=== PATIENT | female | born 1980 | race Caucasian/White ===

== ENCOUNTER 2016-08-26 12:06 | Emergency (ER) | payer BC, OTHER ==
[~2016-08-26] VITALS: Ht 165.1 cm; Wt 69.6 kg
[~2016-08-26 12:06] MED LIST: PRENTAB26 PO
[2016-08-26 12:14] VITALS: TEMP 37; Ht 165.1 cm; Wt 69.6 kg
[2016-08-26] MEDS ORDERED: ACETAMINOPHEN 500 MG TAB PO STA (13:09)
--- NOTE | 2016-08-26 13:36 | EMERGENCY ROOM VISIT NOTE ---
History Report prepared by Benji: Mary Puga Under the Supervision of: Dr. Travis Mahoney M.D. First contact with patient: 12:55 Chief Complaint: SHOULDER PAIN Stated Complaint: RIGHT SHOULDER PAIN History of Present Illness The patient is a 36 year old female who presents to the Emergency Room with complaints of persistent right shoulder pain starting at 1100 this morning. She fell off of a horse when it slipped in the rain. She landed on her right shoulder. She can extend her elbow, but she does not move her shoulder. Her humerus feels ok. She denies any chest pain, SOB, vaginal bleeding. She is 5 months . This is her second . There were no problems with her first. Source of History: patient Onset: 1100 today Position: shoulder (right) Quality: other (pain) Timing: other (persistent) Modifying Factors (Worsening): movement Associated Symptoms: No SOB, No chest pain Note: Pt denies vaginal bleeding. Review of Systems See HPI for pertinent positives & negatives. A total of 10 systems reviewed and were otherwise negative. Past Medical & Surgical Medical Problems: (1) Humerus fracture (2) Humerus fracture Family History Cancer Diabetes mellitus Hypertension Social History Smoking Status: Never Smoker Alcohol Use: none Housing Status: lives with family Current/Historical Medications Scheduled PRN Oxycodone Immediate Rel Tab (Roxicodone Ir), 1 TAB PO QID PRN for Pain Allergies Coded Allergies: No Known Allergies (Unverified , 08/26/16) Physical Exam Vital Signs Date Time Temp Pulse Resp B/P Pulse Ox O2 Delivery O2 Flow Rate FiO2 08/26/16 17:49 76 18 126/64 97 08/26/16 15:48 72 18 132/74 98 Room Air 08/26/16 13:58 70 08/26/16 13:51 72 18 127/80 98 Room Air 08/26/16 12:14 37.0 69 16 130/91 99 Room Air Physical Exam GENERAL: Patient is a healthy-appearing well-nourished HEAD: Normocephalic atraumatic EYES: Ocular movements intact pupils equal and react to light OROPHARYNX mucous membranes are moist no exudates present no erythema or edema present NECK: Supple no nuchal rigidity CHEST: Good equal expansion. Obvious deformity to the mid clavicle area. LUNGS: Clear and equal to auscultation CARDIAC: Normal S1 and S2 ABDOMEN: Gravid abdomen. BACK: No CVA tenderness EXTREMITIES: No pain upon palpation normal muscle strength in all groups no clubbing cyanosis or edema NEURO: Patient is following commands is answering questions appropriately. Alert and oriented x3 Cranial Nerves 2-12 grossly intact Medical Decision & Procedures ER Provider Diagnostic Interpretation: X-ray results as stated below per interpretation by me and the radiologist. Radiology results as stated below per my review and radiologist interpretation: ADDENDUM Additional submitted films demonstrate a fracture of the midshaft right clavicle. Electronically signed by: Willis Bassett M.D. 08/26/2016 2:31 PM Dictated Date/Time: 08/26/2016 2:31 PM ORIGINAL REPORT RIGHT SHOULDER MIN 2 VIEWS ROUTINE CLINICAL HISTORY: Pt c/o rt shoulder pain; Lio; shield abd Right pain COMPARISON: None. DISCUSSION: The bones and joint spaces appear intact. There is no evidence of fracture, dislocation or bony disease. Findings consistent with old fracture of the humeral neck. IMPRESSION: No acute bony abnormality. Electronically signed by: Willis Bassett M.D. 08/26/2016 2:07 PM Dictated Date/Time: 08/26/2016 2:07 PM Limited ultrasound LIMITED (US) CLINICAL HISTORY: Pt thrown from horse 22 weeks trauma TECHNIQUE: Ultrasound COMPARISON STUDY: None FINDINGS: Single, viable intrauterine . Estimated gestational age 19 weeks 4 days. Posterior placenta. No evidence for placenta previa or bronchial placenta. Heart heart rate is confirmed at 1 45 bpm the ovaries appear unremarkable. There is no free fluid. IMPRESSION: Single, viable intrauterine of approximately 19 weeks 4 days gestational age. No abnormalities appreciated. Electronically signed by: Willis Bassett M.D. 08/26/2016 4:42 PM Dictated Date/Time: 08/26/2016 4:40 PM Laboratory Results 08/26/16 13:40 Red Blood Count 4.35, Mean Corpuscular Volume 90.8, Mean Corpuscular Hemoglobin 29.9, Mean Corpuscular Hemoglobin Concent 32.9, Mean Platelet Volume 10.8, Neutrophils (%) (Auto) 78.6, Lymphocytes (%) (Auto) 18.1, Monocytes (%) (Auto) 2.7, Eosinophils (%) (Auto) 0.2, Basophils (%) (Auto) 0.2, Neutrophils # (Auto) 6.59, Lymphocytes # (Auto) 1.52, Monocytes # (Auto) 0.23, Eosinophils # (Auto) 0.02, Basophils # (Auto) 0.02 08/26/16 13:40 Test 08/26/16 13:10 08/26/16 13:40 08/26/16 13:45 Prothrombin Time 9.5 SECONDS (9.0-12.0) Prothromb Time International Ratio 0.9 (0.9-1.1) Activated Partial Thromboplast Time 25.3 SECONDS (21.0-31.0) Partial Thromboplastin Ratio 1.0 Fibrinogen 298 mg/dl (184-400) White Blood Count 8.40 K/uL (4.8-10.8) Red Blood Count 4.35 M/uL (4.2-5.4) Hemoglobin 13.0 g/dL (12.0-16.0) Hematocrit 39.5 % (37-47) Mean Corpuscular Volume 90.8 fL (80-100) Mean Corpuscular Hemoglobin 29.9 pg (25-34) Mean Corpuscular Hemoglobin Concent 32.9 g/dl (32-36) Platelet Count 246 K/uL (130-400) Mean Platelet Volume 10.8 fL (7.4-10.4) Neutrophils (%) (Auto) 78.6 % Lymphocytes (%) (Auto) 18.1 % Monocytes (%) (Auto) 2.7 % Eosinophils (%) (Auto) 0.2 % Basophils (%) (Auto) 0.2 % Neutrophils # (Auto) 6.59 K/uL (1.4-6.5) Lymphocytes # (Auto) 1.52 K/uL (1.2-3.4) Monocytes # (Auto) 0.23 K/uL (0.11-0.59) Eosinophils # (Auto) 0.02 K/uL (0-0.5) Basophils # (Auto) 0.02 K/uL (0-0.2) RDW Standard Deviation 44.6 fL (36.4-46.3) RDW Coefficient of Variation 13.5 % (11.5-14.5) Immature Granulocyte % (Auto) 0.2 % Immature Granulocyte # (Auto) 0.02 K/uL (0.00-0.02) Anion Gap 7.0 mmol/L (3-11) Est Creatinine Clear Calc Drug Dose 138.5 ml/min Estimated GFR () 139.9 Estimated GFR (Non- 120.7 BUN/Creatinine Ratio 18.9 (10-20) Calcium Level 9.1 mg/dl (8.5-10.1) Total Bilirubin 0.2 mg/dl (0.2-1) Direct Bilirubin < 0.1 mg/dl (0-0.2) Aspartate Amino Transf (AST/SGOT) 16 U/L (15-37) Alanine Aminotransferase (ALT/SGPT) 24 U/L (12-78) Alkaline Phosphatase 41 U/L (45-117) Total Protein 7.5 gm/dl (6.4-8.2) Albumin 3.6 gm/dl (3.4-5.0) Lipase 189 U/L (73-393) Urine Color YELLOW Urine Appearance CLEAR (CLEAR) Urine pH 6.0 (4.5-7.5) Urine Specific [place] 1.012 (1.000-1.030) Urine Protein NEG (NEG) Urine Glucose (UA) NEG (NEG) Urine Ketones NEG (NEG) Urine Occult Blood NEG (NEG) Urine Nitrite NEG (NEG) Urine Bilirubin NEG (NEG) Urine Urobilinogen NEG (NEG) Urine Leukocyte Esterase NEG (NEG) Labs reviewed by ED physician. Medications Administered Medications (Trade) Dose Ordered Sig/Rena Route Start Time Stop Time Status Last Admin Dose Admin Acetaminophen (Tylenol Tab) 1,000 mg NOW STAT PO 08/26/16 13:09 08/26/16 13:12 DC 08/26/16 13:09 1,000 MG Oxycodone HCl (Roxicodone Immediate Rel 5MG Home Pack) 1 homepack UD ONCE PO 08/26/16 17:15 08/26/16 17:16 DC 08/26/16 17:39 1 HOMEPACK ED Course 1256: Past medical records reviewed. The patient was evaluated in room C9. A complete history and physical examination was performed. 1309: Acetaminophen 1000 mg PO. 1421: I reevaluated the patient. She is resting comfortably. I updated her on the results. She will be getting an ultrasound. 1432: I discussed the patient's case with [employer] Rep[employer] Supervisor. She will follow up with the patient. 1642: Upon reexamination the patient is resting comfortably. I discussed results and treatment plan with the patient. She verbalizes agreement and understanding. The patient is ready for discharge. 1659: I discussed the patient's case with [employer] Rep[employer] Supervisor. She says the patient should return if any cramping or vaginal bleeding occur. Medical Decision Prior records reviewed and summarized above. Triage Nursing notes reviewed. The patient's history was concerning for right shoulder pain. Differential diagnosis: Etiologies such as fracture, dislocation, neurovascular compromise, compartment syndrome, soft tissue injury, as well as others were entertained. This is a 36-year-old female who presents emergency department complaining of right shoulder pain. The patient appears to have good use of the right shoulder and it appears to be intact with good movement however I do suspect that she broke clavicle. The patient was originally sent for x-rays, only a right shoulder was performed. This was read as no acute process and conveyed to the patient however on reexamination I again was concerned the clavicle was fractured and I asked the x-ray tech to reshoot pictures. This revealed a fractured clavicle. I initially tried to place the patient in a sling however this was unsuccessful in getting the patient's pain under control. She was then placed in a figure 8 sling. The patient did receive Tylenol in the emergency department however refused further pain medication because of concern for the baby. A fast was also immediately performed in the emergency department which did not show any evidence of free fluid. Patient has normal CBC and her blood type is positive. I did discuss the case with gynecology who asked that the patient be sent for an ultrasound. The patient was observed for 6 hours in the emergency department. During that time serial abdominal examinations were performed on the patient in the emergency department at no time did she exhibit vaginal bleeding or surgical abdomen. I recommended the patient stop riding horses during her . She is going to follow-up with RN PLACEMENT. Patient and were in agreement with the treatment plan to follow-up with Dr. Newton from orthopedics. Consults Time Called: 1426 Consulting Physician: Wendy [employer] Repair Supervisor Returned Call: 1432 I discussed the patient's case with her. She will follow up with the patient. Additional Consults: Time Called: 1656 Consulted Physician: Wendy [address] [employer] Repair Supervisor Returned Call: [phone] Additional Comments: I discussed the patient's case with her. She says the patient should return if any cramping or vaginal bleeding occur. Impression Primary Impression: Fall Additional Impressions: Single in second trimester Clavicle fracture Scribe Attestation The scribe's documentation has been prepared under my direction and personally reviewed by me in its entirety. I confirm that the note above accurately reflects all work, treatment, procedures, and medical decision making performed by me. Departure Information Dispostion Home / Self-Care Prescriptions Oxycodone Immediate Rel Tab (ROXICODONE IR) 5 Mg Tab 1 TAB PO QID Y for Pain, #14 TAB Prov: Travis Mahoney MD 08/26/16 Referrals No Doctor, Assigned (PCP) Canan. Szymanski MD Suhey, Paul V.,D.O. Forms HOME CARE DOCUMENTATION FORM, IMPORTANT VISIT INFORMATION Patient Instructions ED Fx Clavicle, ED Sling, [facility] Additional Instructions Follow up with Dr Arshad's office Need follow up with DR Newton's office Return if severe cramping or vag bleeding occur You received narcotic or benzodiazepene medication while in the emergency room today. Do not drive, operate heavy machinery, or drink alcohol under the influence of this medication. Take 1000 mg Tylenol every 6 hours Take oxy ir for breakthrough pain You have been examined and treated today on an emergency basis only. This is not a substitute for, or an effort to provide, complete comprehensive medical care. It is impossible to recognize and treat all injuries or illnesses in a single emergency department visit. It is therefore important that you follow up closely with Dr Arshad. Call as soon as possible for an appointment. Thank you for your time and consideration. I look forward to speaking with you again soon. Please don't hesitate to call us if you have any questions. Problem Qualifiers Primary Impression: Fall Encounter type: initial encounter Qualified Codes: W19.XXXA - Unspecified fall, initial encounter Additional Impressions: Clavicle fracture Encounter type: initial encounter Clavicle location: unspecified part of clavicle Fracture type: closed Fracture alignment: displaced Laterality: right Qualified Codes: S42.001A - Fracture of unspecified part of right clavicle, initial encounter for closed fracture
[2016-08-26 13:52] LABS: BASO % 0.2 %; BASO ABS # 0.02 K/uL (0-0.2); COMPLETE YES; EOS % 0.2 %; HEMATOCRIT 39.5 % (37-47); IG% 0.2 %; LYMPH % 18.1 %; LYMPH ABS # 1.52 K/uL (1.2-3.4); MEAN CELL VOLUME 90.8 fL (80-100); MEAN CORPUSCULAR HEMOGLOBIN 29.9 pg (25-34); MEAN CORPUSCULAR HGB CONC 32.9 g/dl (32-36); MEAN PLATELET VOLUME 10.8 fL (7.4-10.4); MONO % 2.7 %; NEUT % 78.6 %; PLATELET COUNT 246 K/uL (130-400); RED BLOOD COUNT 4.35 M/uL (4.2-5.4)
[2016-08-26 14:02] LABS: URINE APPEARANCE CLEAR (CLEAR); URINE BILIRUBIN NEG (NEG); URINE COLOR YELLOW; URINE NITRITE NEG (NEG); URINE SPECIFIC GRAVITY 1.012 (1.000-1.030); UROBILINOGEN NEG (NEG)
--- NOTE | 2016-08-26 14:09 | DIAGNOSTIC IMAGING REPORT ---
ADDENDUM Additional submitted films demonstrate a fracture of the midshaft right clavicle. Electronically signed by: Willis Bassett M.D. 08/26/2016 2:31 PM Dictated Date/Time: 08/26/2016 2:31 PM ORIGINAL REPORT RIGHT SHOULDER MIN 2 VIEWS ROUTINE CLINICAL HISTORY: Pt c/o rt shoulder pain; Lio; shield abd Right pain COMPARISON: None. DISCUSSION: The bones and joint spaces appear intact. There is no evidence of fracture, dislocation or bony disease. Findings consistent with old fracture of the humeral neck. IMPRESSION: No acute bony abnormality. Electronically signed by: Willis Bassett M.D. 08/26/2016 2:07 PM Dictated Date/Time: 08/26/2016 2:07 PM
[2016-08-26 14:13] LABS: MANUAL MICROSCOPIC REQUIRED? NO; REVIEW REQ? NO
[2016-08-26 14:16] LABS: ALT/SGPT 24 U/L (12-78); AST/SGOT 16 U/L (15-37); BLOOD UREA NITROGEN 10 mg/dl (7-18); BUN/CREATININE RATIO 18.9 (10-20); CALCIUM 9.1 mg/dl (8.5-10.1); CARBON DIOXIDE 25 mmol/L (21-32); CHLORIDE 106 mmol/L (98-107); CREATININE 0.55 mg/dl (0.60-1.20); GLUCOSE 77 mg/dl (70-99); SODIUM 138 mmol/L (136-145)
[2016-08-26 14:17] LABS: ALKALINE PHOSPHATASE 41 U/L (45-117)
[2016-08-26] MEDS ORDERED: OXYC1TAB3 PO (14:44)
[2016-08-26 15:09] LABS: INR 0.9 (0.9-1.1); PROTHROMBIN TIME (PATIENT) 9.5 SECONDS (9.0-12.0)
--- NOTE | 2016-08-26 16:43 | DIAGNOSTIC IMAGING REPORT ---
Limited ultrasound LIMITED (US) CLINICAL HISTORY: Pt thrown from horse 22 weeks trauma TECHNIQUE: Ultrasound COMPARISON STUDY: None FINDINGS: Single, viable intrauterine . Estimated gestational age 19 weeks 4 days. Posterior placenta. No evidence for placenta previa or bronchial placenta. Heart heart rate is confirmed at 1 45 bpm the ovaries appear unremarkable. There is no free fluid. IMPRESSION: Single, viable intrauterine of approximately 19 weeks 4 days gestational age. No abnormalities appreciated. Electronically signed by: Willis Bassett M.D. 08/26/2016 4:42 PM Dictated Date/Time: 08/26/2016 4:40 PM
[2016-08-26] MEDS ORDERED: OXYCODONE IR HOME PACK PO ONE (17:15)
[2016-08-26 17:49] VITALS: BP 126/64; PULSE 76; O2SAT 97
== END 2016-08-26 17:49 | disposition home or self-care (01) ==
LOC: C.EDB 12:07 → C.EDC 17:49
DX: S42.001A Fracture of unspecified part of right clavicle, initial encounter for closed fracture (principal); X58.XXXA Exposure to other specified factors, initial encounter

== ENCOUNTER 2017-01-13 13:38 | Inpatient (IN) | payer BC ==
[~2017-01-13] VITALS: Ht 165.1 cm; Wt 73.0 kg
[~2017-01-13 13:38] MED LIST changes: +OXYC1TAB3 PO; -PRENTAB26 PO
[2017-01-13] MEDS ORDERED: LACTATED RINGER'S 1000ML 1,000 ML IV PRN (13:43)
[2017-01-13] MEDS ORDERED: LACTATED RINGER'S 1000ML 1,000 ML IV SCH (13:43)
[2017-01-13] MEDS ORDERED: PENICILLIN G POTASSIUM IV 3 MU in DEXTROSE 5% 100ML 100 ML IV PRN (13:45)
[2017-01-13] MEDS ORDERED: EpHEDrine SULFATE INJ 50 MG/ML AMP ONE (13:59)
[2017-01-13] MEDS ORDERED: BUPIVACAINE 0.25% 30 ML VIAL ONE (13:59)
[2017-01-13] MEDS ORDERED: FENTANYL CITRATE INJ 50 MCG/1 ML 2 ML VIAL ONE (14:00)
[2017-01-13] MEDS ORDERED: PENICILLIN G POTASSIUM IV 6 MU in DEXTROSE 5% 250ML 250 ML IV ONE (14:00)
[2017-01-13] MEDS ORDERED: FENTANYL 2MCG/ML ROPIV 1.25MG/ML 100ML BAG EPI ONE (14:00)
[2017-01-13 14:17] LABS: HEMATOCRIT 37.8 % (37-47); MEAN CELL VOLUME 88.5 fL (80-100); MEAN CORPUSCULAR HEMOGLOBIN 29.3 pg (25-34); MEAN PLATELET VOLUME 12.3 fL (7.4-10.4); PLATELET COUNT 190 K/uL (130-400); RED BLOOD COUNT 4.27 M/uL (4.2-5.4); WHITE BLOOD COUNT 13.28 K/uL (4.8-10.8)
[2017-01-13 14:23] LABS: MEAN CORPUSCULAR HGB CONC 33.1 g/dl (32-36)
[2017-01-13] MEDS ORDERED: OXYTOCIN 30 UNITS/500ML NSS IV ONE (14:28)
[2017-01-13] MEDS ORDERED: OXYTOCIN 30 UNITS/500ML NSS IV PRN (14:45)
[2017-01-13] MEDS ORDERED: ACETAMINOPHEN/CODEINE 300/30MG TAB PO PRN ×2 (14:45)
[2017-01-13] MEDS ORDERED: BENZOCAINE 20% AER SPR 82.5 GM CAN EXT PRN (14:45)
[2017-01-13] MEDS ORDERED: LANOLIN OINT EXT PRN ×2 (14:45)
[2017-01-13] MEDS ORDERED: OXYCODONE/ACETAMINOPHEN 5-325 TAB PO PRN (14:45)
[2017-01-13] MEDS ORDERED: HYDROCORTISONE ACETATE 25 MG SUPP PR PRN (14:45)
[2017-01-13] MEDS ORDERED: DIPHTHERIA/TETANUS/PERTUSSIS 0.5 ML SYR/VIAL IM. ONE (14:45)
[2017-01-13] MEDS ORDERED: SUPERCREAM 0.870 % 15GM JAR EXT PRN (14:45)
[2017-01-13] MEDS ORDERED: ACETAMINOPHEN 325 MG TAB PO PRN (14:45)
--- NOTE | 2017-01-13 17:25 | DELIVERY SUMMARY ---
DATE OF OPERATION: 01/13/2017 TIME OF DELIVERY: 1426. DELIVERY OF PLACENTA: 1427. DELIVERY NOTE: The patient is a 36-year-old 2, para 1 at 40 weeks and 4 days, who was admitted to labor and delivery on the afternoon of 01/13/2017 in active labor. She was unsure of when she ruptured but she states that she began leaking fluid yesterday evening but did not think she was ruptured. On arrival, she was found to be 6-7 cm and membranes were not intact. She is GBS positive and was unable to get properly treated. She reached complete dilation quickly at 1416 with the urge to push. She pushed to delivery at 1426. She delivered a viable male infant in the left occiput anterior position to an intact perineum. A mild to moderate shoulder dystocia was noted. Anterior shoulder was delivered with Luis Daniel and suprapubic pressure. Once the anterior shoulder was delivered, the rest of the baby was delivered without complication and placed on the patient's abdomen. Cord was clamped x2 and cut. The baby was immediately handed to awaiting nursing personnel for further evaluation and management. Please see their notes for further baby assessment. Apgars and weight are pending. Oxytocin infusion was then began. The lower uterine segment and vagina were cleared of any blood clots and debris. Exploration of the perineum noted no lacerations. All sponge and instrument counts were found to be correct x2. Estimated blood loss was 250 mL. Both patient and baby tolerated the delivery well and were in recovery with stable vital signs. I attest to the content of the Intraoperative Record and any orders documented therein. Any exception s are noted below.
[2017-01-13 18:05] VITALS: Ht 165.1 cm; Wt 73.0 kg
[2017-01-13] MEDS ORDERED: PRENTAB26 PO (18:06)
[2017-01-13 20:15] VITALS: BP 103/63; PULSE 67; TEMP 36.6
[2017-01-13] MEDS: DOCUSATE SODIUM 100 MG CAP PO SCH (21:36)
[2017-01-13 23:30] VITALS: BP 103/61; PULSE 62; TEMP 36.8; O2SAT 98
[2017-01-14 04:35] VITALS: BP 115/70; PULSE 77; TEMP 36.8; O2SAT 98
[2017-01-14 06:58] LABS: HEMATOCRIT 32.9 % (37-47)
[2017-01-14 08:00] VITALS: BP 112/75; PULSE 71; TEMP 36.5; O2SAT 98
[2017-01-14] MEDS: PRENATAL VITAMIN TAB PO SCH (08:00)
[2017-01-14] MEDS: DOCUSATE SODIUM 100 MG CAP PO SCH ×2 (08:00→20:39)
[2017-01-14] MEDS: FERROUS SULFATE 325 MG TAB PO SCH (08:00)
[2017-01-14] MEDS: IBUPROFEN 600 MG TAB PO PRN (08:01)
--- NOTE | 2017-01-14 09:30 | OB/GYN Progress Note ---
CUSTOMER SERVICE TRAINER Progress Note Date of Service: Jan 14, 2017. Patient is seen and examined. She feels well, no complaints. Ambulating without dizziness Voiding without difficulty Tolerating regular diet with out N&V Bleeding is minimal No fever/ chills/ CP/ SOB/ N&V/ Leg pain Breast feeding without problems Date Time Temp Pulse Resp B/P (MAP) Pulse Ox O2 Delivery O2 Flow Rate FiO2 01/14/17 08:00 98 Room Air 01/14/17 08:00 36.5 71 18 112/75 (87) 98 Room Air 01/14/17 04:35 36.8 77 16 115/70 (85) 98 Room Air 01/13/17 23:30 36.8 62 18 103/61 (75) 98 Room Air 01/13/17 23:30 98 Room Air 01/13/17 20:15 36.6 67 16 103/63 01/13/17 18:40 Room Air Test 01/13/17 14:02 01/14/17 06:46 White Blood Count 13.28 H Red Blood Count 4.27 Hemoglobin 12.5 11.1 L Hematocrit 37.8 32.9 L Mean Corpuscular Volume 88.5 Mean Corpuscular Hemoglobin 29.3 Mean Corpuscular Hemoglobin Concent 33.1 RDW Standard Deviation 40.9 RDW Coefficient of Variation 12.8 Platelet Count 190 Mean Platelet Volume 12.3 H PE: General: Alert, orientedx3, NAD Abd: soft, NT, fundus firm, below Umbilicus Perineum intact, Lochia rubra minimal Ext; NT, no edema AP: 36 yo s/p , ppd# 1 VSS Afebrile doing well Continue routine care All questions were answered D/C home tomorrow
[2017-01-14 11:30] VITALS: BP 108/62; PULSE 57; TEMP 36.6; O2SAT 98
[2017-01-14 15:42] VITALS: BP 108/68; PULSE 54; TEMP 36.6; O2SAT 99
[2017-01-14] MEDS ORDERED: BISACODYL 5 MG TABEC PO SCH (20:00)
[2017-01-14 23:35] VITALS: BP 116/69; PULSE 58; TEMP 36.9; O2SAT 98
[2017-01-15] MEDS ORDERED: BISACODYL 10 MG SUPP PR PRN (07:00)
[2017-01-15 07:54] VITALS: BP 102/62; PULSE 64; TEMP 36.9
[2017-01-15] MEDS: FERROUS SULFATE 325 MG TAB PO SCH (08:32)
[2017-01-15] MEDS: PRENATAL VITAMIN TAB PO SCH (08:32)
[2017-01-15] MEDS: DOCUSATE SODIUM 100 MG CAP PO SCH (08:32)
[2017-01-15] MEDS: IBUPROFEN 600 MG TAB PO PRN ×2 (08:33→12:42)
[2017-01-15 08:53] LABS: HEMATOCRIT 36.5 % (37-47); MEAN CORPUSCULAR HEMOGLOBIN 28.7 pg (25-34); MEAN CORPUSCULAR HGB CONC 31.5 g/dl (32-36); MEAN PLATELET VOLUME 11.7 fL (7.4-10.4); PLATELET COUNT 196 K/uL (130-400); RED BLOOD COUNT 4.01 M/uL (4.2-5.4)
[2017-01-15] MEDS ORDERED: MTR600X PO (11:53)
--- NOTE | 2017-01-15 11:55 | Discharge Instructions ---
Discharge Instructions Date of Service Jan 15, 2017. Admission Reason for Admission: Check Labor Discharge Discharge Diagnosis / Problem: term delivered Discharge Goals Goal(s): Routine recovery after delivery Activity Recommendations Activity Limitations: as noted below Lifting Limitations: no more than 10 pounds Exercise/Sports Limitations: as tolerated, until after follow-up appointment May Resume Sexual Activity: after follow-up appointment Shower/Bathe: no limitations Driving or Machine Use: resume 3 days after discharge . Instructions / Follow-Up Instructions / Follow-Up ACTIVITY RECOMMENDATIONS: * Gradual return to full activity over the next 2-3 weeks. * No lifting - nothing heavier than baby over the next 2-3 weeks. * Do not engage in vigorous exercise, sexual activity or sports until cleared by your physician. * Do not drive or operate any motorized equipment until cleared by your physician. * You may shower/bathe daily. BREAST CARE: If you are not breast feeding: * Wear a supportive bra 24 hours a day for one to two weeks. * Avoid stimulating your breasts and nipples as much as possible during the first few weeks after delivery. * When taking a shower, have the warm water hit your back, not breasts. * When your breasts feel full, apply ice packs. Usually three to four times a day helps ease the discomfort. * Take a mild pain medication (Tylenol/Motrin) when you are uncomfortable. If breast feeding: * Use breast milk to lubricate nipples. Lansinoh cream may be used for sore nipples. You do not need to remove cream prior to breast feeding. If using a different brand of cream, check the label for directions regarding removal of cream prior to nursing. * Wear a supportive bra. * If having problems with breasts or breast feeding, call a senior professional services consultant or your health care provider. EPISIOTOMY CARE: After delivery, if you have an episiotomy (stitches), the following steps will ease discomfort and aid healing. * For the first 24 hours after delivery, place ice packs next to your episiotomy to help reduce swelling. * After the first 24 hour-period, sitz baths, either portable or in the tub, are suggested. A shower with a shower arm sprayed over the episiotomy may be comforting. * [place] care should be done after each voiding and bowel movement. Squirt warm water from a plastic bottle over the perineum (region of the body between the anus and urinary opening) and pat dry. * Use Dermoplast to ease discomfort. Shake container. [place] directly over the episiotomy. * Place a Tucks on a clean sanitary pad next to your episiotomy. OVER THE COUNTER MEDICATION: * For discomfort or pain, you may use Acetaminophen (Tylenol), Ibuprofen (Advil ), or Naproxen (Aleve) following the package directions. * For constipation you may use Colace following the package directions. SPECIAL CARE INSTRUCTIONS: When you are discharged from the hospital, it is important for you to follow the instructions listed below: * During the first week at home, you should be able to care for yourself and your baby. In addition, the usual light household activities are encouraged. * Limit your activities to the way you feel. Do not try to clean the house or move furniture. Be sensible. * If you actively engage in sports and have done so up until the time of your delivery, you may resume these activities as soon as you feel able. This may take up to one month or even longer. Use good judgment. * Continue to take your vitamins for at least six weeks after the of your baby. * Your diet need not be limited unless you were on a special diet before your delivery. Breast-feeding mothers need around 2500 calories per day and at least 64-80 ounces of fluid per day (8 to 10 glasses). * You should eat foods from the four major food groups. Crash diets or fad diets are to be avoided. Eating lean meats, fresh fruits and vegetables, low-fat dairy products, high fiber foods and a regular exercise program, will help you get back to your pre- weight without putting your health at risk. * Constipation is sometimes a problem after delivery. Take a mild laxative as needed. If breast feeding, Milk of Magnesia is acceptable to use. You may use a suppository or Fleets enema if no episiotomy. * A daily shower or tub bath is suggested. Be sure to thoroughly and gently dry the perineum. * A bloody vaginal discharge will usually continue until around four weeks post . A small amount of bleeding may continue for as long as six weeks. Vaginal discharge changes from the bright red bleeding after delivery to pink then brownish and finally yellowish-pink before becoming white and disappearing. * Bleeding may increase with activity. Your first period may come in 4-8 weeks. If you are breast feeding, your period may be delayed even longer. * [place] (sex) can begin whenever both you and your partner feel comfortable and do not have any form of genital infection. It is recommended that you wait until after your return appointment and discuss with your physician. If you have questions, please talk to your health care practitioner. A condom should be used to prevent infection and . * Foreplay, gentle intercourse and lubrication is very important the first several times to prevent pain. A water-based lubricant such as K-Y jelly or Astroglide may be used. * Tampons may be used six weeks after delivery. * Douching should be avoided for 6 weeks after delivery. * If you have RH negative blood and your baby is RH positive, you will receive RHOGAM by injection prior to discharge. The nurse will give you a card to keep with you that has the date and place that you received RHOGAM after delivery. * During your care, you had a Rubella screen done to check for the presence of rubella antibodies in your blood. If your test was negative, you will receive a Rubella vaccine prior to discharge. This vaccine may cause a fever, soreness at the injection site and flu-like symptoms. If these symptoms persist, notify your health care practitioner. is not advised for three months after a Rubella vaccine. There is a higher chance of having a baby with defects if conceived within three months of getting the vaccine. * If you were discharged 24 hours from delivery or before 48 hours: Visiting nurses will come to your home 48 hours after discharge to assess you and your baby. The visiting nurse will meet with you while you are in the hospital to arrange a time and get directions to your home. * Verbalizes understanding of car seat law as reviewed with patient nursing. * Car Seat hand-out given and reviewed with patient by nursing. * Shaken baby information reviewed with patient by nursing. Call you doctor if: * Heavy bleeding (saturating several pads an hour) or passing clots the size of your fist. * A fever >101 degrees F (38.3 degrees C) on two occasions four hours apart and/or chills. * Unusual pain in the pelvic or vaginal areas. * "Baby Blues" lasting longer than two weeks. If you have any questions or concerns, call your health care practitioner at . FOLLOW-UP VISIT: * Please call the office at to schedule a 6 week examination. It is important you keep this appointment. * It is important for you to make arrangements for either yearly or twice yearly check-ups thereafter. Current Hospital Diet Patient's current hospital diet: Regular OB Diet Discharge Diet Recommended Diet: Regular OB Diet Procedures Procedures Performed: normal vaginal delivery Pending Studies Studies pending at discharge: no Medical Emergencies . Who to Call and When: Medical Emergencies: If at any time you feel your situation is an emergency, please call 911 immediately. . Non-Emergent Contact Non-Emergency issues call your: Primary Care Provider . . "Provider Documentation" section prepared by Kuldip Agustin. . VTE Core Measure Inpt VTE Proph given/why not?: Treatment not indicated
--- NOTE | 2017-01-15 11:57 | OB/GYN Progress Note ---
[facility] Progress Note Date of Service Jan 15, 2017. Subjective conversation w/ patient, physical exam Ambulation: ambulating normally Voiding: no voiding problems Passing Gas: Yes Diet Tolerance: Regular Diet Lochia: Small Feeding Type: Breast Feeding Objective Vital Signs Date Time Temp Pulse Resp B/P (MAP) Pulse Ox O2 Delivery O2 Flow Rate FiO2 01/15/17 07:54 36.9 64 18 102/62 (75) Room Air 01/15/17 07:45 Room Air 01/14/17 23:35 36.9 58 16 116/69 (85) 98 Room Air 01/14/17 23:35 Room Air 01/14/17 15:44 Room Air 01/14/17 15:42 36.6 54 15 108/68 (81) 99 Room Air Physical Exam General Appearance: WELL-APPEARING, NO APPARENT DISTRESS Abdomen: non tender, soft Fundus: Firm Extremities: non-tender, normal inspection, no pedal edema Laboratory Results Last 24 Hours Test 01/15/17 08:39 White Blood Count 8.20 K/uL Red Blood Count 4.01 M/uL Hemoglobin 11.5 g/dL Hematocrit 36.5 % Mean Corpuscular Volume 91.0 fL Mean Corpuscular Hemoglobin 28.7 pg Mean Corpuscular Hemoglobin Concent 31.5 g/dl RDW Standard Deviation 42.9 fL RDW Coefficient of Variation 12.9 % Platelet Count 196 K/uL Mean Platelet Volume 11.7 fL Assessment and Plan Post- Day Number: 2
[2017-01-15 14:35] VITALS: BP_DIAS 62; PULSE 64; TEMP 36.9
== END 2017-01-15 14:35 | disposition home or self-care (01) | DRG 775 ==
LOC: EDSTATUS 13:38 → C.LD 13:38 → C.OPB 13:38 → C.LD 13:45 → C.MS4N 17:38
PROVIDERS: ADMIT Obstetrics & Gynecology; ATTEND Obstetrics & Gynecology
PROC: 10E0XZZ Delivery of Products of Conception, External Approach (ICD-10-PCS; principal; 2017-01-13)
DX: O99.824 Streptococcus B carrier state complicating childbirth (principal); Z3A.40 40 weeks gestation of pregnancy; Z37.0 Single live birth